=== PATIENT | male | born 1980 | race Caucasian/White ===

== ENCOUNTER 2020-10-22 07:15 | Day surgery (SDC) | payer MEDICAID ==
[~2020-10-22 07:15] MED LIST: Sodium Chloride 0.9% 1,000 ML IV SCH
[2020-10-22] MEDS ORDERED: fentaNYL 100 MCG/2 ML SDV ONE (07:27)
[2020-10-22] MEDS ORDERED: Propofol 200 MG/20 ML SDV ONE (07:27)
[2020-10-22] MEDS ORDERED: Midazolam 1 MG/ML 2 ML SDV ONE (07:27)
--- NOTE | 2020-10-22 12:55 | OR ---
DATE OF PROCEDURE: 10/22/2020 SURGEON: Medardo Luna MD PROCEDURE: Esophagogastroduodenoscopy. FINDINGS: Mild inflammation at GE junction. PREOPERATIVE DIAGNOSIS: History of Shannon's esophagus. POSTOPERATIVE DIAGNOSIS: History of Shannon's esophagus. RISKS: Risks, benefits, alternatives, limitations including but not limited to infection, bleeding, perforation, false positives, and false negatives were explained to the patient and he wished to proceed. PROCEDURE IN DETAIL: The patient was placed in left lateral decubitus position. EGD scope was introduced and advanced atraumatically to the second part of the duodenum. No evidence of duodenitis or ulceration was noted. The patient had retained solid and liquid remaining in his stomach. Suction irrigation techniques were used to remove as much as possible. On retroflexion, no evidence of gastritis. The patient had a probable 3 cm hiatal hernia. The GE junction was biopsied in multiple sites using cold biopsy forceps, approximately x10. The remainder of the esophagus was normal. With respect to the GE junction, the patient had 1 small tongue of inflammation consistent with history of Shannon's esophagus. This was less than 1 cm in size. The patient tolerated the procedure well. Medardo Luna MD /[id number]
== END 2020-10-22 11:25 | disposition home or self-care (01) ==
LOC: JP.SDS 07:15
PROVIDERS: ATTEND Surgery
DX: K22.70 Barrett's esophagus without dysplasia (principal); K22.8 Other specified diseases of esophagus; F17.210 Nicotine dependence, cigarettes, uncomplicated
CPT/HCPCS: J2250; J2704; J3010; J7030